=== PATIENT | male | born 1930 | race Caucasian/White ===

== ENCOUNTER 2016-06-24 09:11 | Inpatient (IN) | payer OTHER ==
[~2016-06-24] VITALS: Ht 162.6 cm; Wt 83.5 kg
[~2016-06-24 09:11] MED LIST: ALBUTEROL17 GM IH; AMLODIPINE BESYL5 MG PO; ASPIR 8181 M1 PO; ATORVASTATIN CA10 MG PO; CALCIUM 500 MG1 EACH PO; CARDIZEM120 MG PO; COLACE100 MG PO; COUMADIN,JANTOVE5 MG PO; COUMADIN5 MG PO; CYANOCOBAL1000 MCG/2 IM; DILTIAZEM PO; LANOXIN,DIGIT0.25 MG PO; LIPITOR10 MG PO; LO-DOSE ASPIRIN81 M1 PO; LOVENOX60 MG/0.6 SC; LOVENOX80 MG/0.8 SC; NORVASC5 MG PO; PROAIR HFA8.5 GM IH; PROVENTIL HFA6.7 GM IH; PROVENTIL,2.5 MG/3 M IH; RANITIDINE HCL150 MG PO; RECLAST5 MG/100 M IV; ULTRAM50 MG PO; VALIUM5 MG PO; WARFARIN SODIU7.5 MG PO; WARFARIN SODIUM5 MG PO
[2016-06-24 09:48] LABS: HEMATOCRIT 46.9 % (38.0-50.0); MCH 30.6 PG (29.0-34.0); MCHC 33.5 G/DL (30.0-36.0); MCV 91.4 FL (86-99); MEAN PLAT.VOLUME 9.1 uM^3 (9.0-12.4); PLATELET COUNT 182 K/uL (156-360); RBC DIS.WIDTH-CV 13.2 % (11.8-14.6); RBC DIS.WIDTH-SD 45.2 % (39-53); RED BLOOD COUNT 5.13 M/uL (4.00-5.50); WHITE BLOOD COUNT 10.6 K/uL (4.1-10.2)
[2016-06-24 09:59] LABS: INTER. NORMALIZED RATIO 2.8; PROTHROMBIN TIME 29.2 (9.2-11.2); PTT 37.5 (25-32)
[2016-06-24 11:07] LABS: CHLORIDE 104 mEq/L (99-109); POTASSIUM 3.9 mEq/L (3.7-5.4); SODIUM 139 mEq/L (136-147)
[2016-06-24 11:09] LABS: GLUCOSE 131 mg/dL (70-99)
[2016-06-24 11:10] LABS: ANION GAP 13 MEQ/L (2-14)
[2016-06-24 11:12] LABS: ALKALINE PHOSPHATASE 100 IU/L (3-129)
[2016-06-24 11:13] LABS: GFR ESTIMATE (CALCULATED) > 59 mL/min/
[2016-06-24 11:14] LABS: UREA NITROGEN (BUN) 17 mg/dL (9-23)
[2016-06-24 11:28] LABS: ADD MIUA? YES; BILIRUBIN NEGATIVE; BLOOD LARGE; COLOR STRAW ((YELLOW)); GLUCOSE (STRIP) NEGATIVE; KETONES 20; LEUKOCYTES NEGATIVE; NITRITE NEGATIVE; PROTEIN (STRIP) NEGATIVE; SPECIFIC GRAVITY 1.013 (1.000-1.030); UROBILINOGEN 0.2 MG/DL (0.2-1.0)
[2016-06-24 12:08] LABS: BACTERIA NONE SEEN /HPF; EPITHELIAL CELLS NONE SEEN /HPF; MUCUS TRACE /LPF; RED BLOOD CELLS TNTC /HPF (0-5); UCUL ADDED? NO; WHITE BLOOD CELLS 0-5 /HPF (0-5)
[2016-06-24] MEDS ORDERED: CARDIZEM CD120 M1 PO (13:49)
[2016-06-24 14:40] LABS: PSA FREE 0.39 ng/mL
[2016-06-24 15:01] VITALS: BP 143/74
[2016-06-24 17:02] VITALS: BP 156/83
[2016-06-24 20:00] VITALS: BP 122/77
[2016-06-25] VITALS: BP 114/70
[2016-06-25 04:00] VITALS: BP 111/53
[2016-06-25 06:37] LABS: INTER. NORMALIZED RATIO 3.4; PROTHROMBIN TIME 35.8 (9.2-11.2)
[2016-06-25 06:52] LABS: ANION GAP 5 MEQ/L (2-14); CHLORIDE 105 MEQ/L (99-109); GFR ESTIMATE (CALCULATED) > 59 mL/min/; SAMPLE HEMOLYSIS CHECK 0; SAMPLE ICTERIC CHECK 0; SAMPLE LIPEMIA CHECK 0; SODIUM 139 MEQ/L (136-147); UREA NITROGEN (BUN) 11 mg/dL (9-23)
[2016-06-25 06:53] LABS: GLUCOSE 94 mg/dL (70-99); POTASSIUM 4.7 MEQ/L (3.7-5.4)
[2016-06-25 07:01] LABS: HEMATOCRIT 44.6 % (38.0-50.0); MCH 30.2 PG (29.0-34.0); MCHC 32.5 G/DL (30.0-36.0); MCV 92.9 FL (86-99); MEAN PLAT.VOLUME 9.6 uM^3 (9.0-12.4); PLATELET COUNT 177 K/uL (156-360); RBC DIS.WIDTH-CV 13.5 % (11.8-14.6); RBC DIS.WIDTH-SD 46.6 % (39-53)
[2016-06-25 07:05] LABS: WHITE BLOOD COUNT 7.4 K/uL (4.1-10.2)
[2016-06-25 07:31] VITALS: BP 127/81
[2016-06-25 10:54] VITALS: BP 126/82
[2016-06-25 16:08] VITALS: BP 96/60
[2016-06-25 21:00] VITALS: BP 108/68
[2016-06-26 00:15] VITALS: BP 120/67
[2016-06-26 01:15] VITALS: BP 127/77
[2016-06-26 04:00] VITALS: BP 133/77
[2016-06-26 07:12] LABS: INTER. NORMALIZED RATIO 2.1; PROTHROMBIN TIME 22.4 (9.2-11.2)
[2016-06-26 07:22] VITALS: BP 158/85
[2016-06-26 10:39] VITALS: BP 153/86
[2016-06-26] MEDS ORDERED: TAMSULOSIN HCL0.4 MG PO (10:56)
[2016-06-26] MEDS ORDERED: POLYETHYLENE GL17 GM PO (10:59)
== END 2016-06-26 13:12 | disposition home or self-care (01) | DRG 694 ==
LOC: EME 09:11 → EDOF 13:03 → 5WEST 13:03 → EDOF 13:03 → 5WEST 14:55
PROVIDERS: Emergency Medicine; Internal Medicine
DX: N13.2 Hydronephrosis with renal and ureteral calculous obstruction (principal); I25.10 Atherosclerotic heart disease of native coronary artery without angina pectoris; I48.2 Chronic atrial fibrillation; M80.88XD Other osteoporosis with current pathological fracture, vertebra(e), subsequent encounter for fracture with routine healing; I10 Essential (primary) hypertension; K80.20 Calculus of gallbladder without cholecystitis without obstruction; R31.0 Gross hematuria; T45.515A Adverse effect of anticoagulants, initial encounter; R79.1 Abnormal coagulation profile; R31.29 Other microscopic hematuria; Z79.01 Long term (current) use of anticoagulants; Z90.79 Acquired absence of other genital organ(s); Z88.0 Allergy status to penicillin; Z98.61 Coronary angioplasty status; Z95.820 Peripheral vascular angioplasty status with implants and grafts
CPT/HCPCS: 74177; 80048; 80053; 81003; 83605; 84154 GA; 85027; 85610; 85730; 99281; 99285; G0103; J1170; J1885; J1956; J2405; J3010; J7030; S0028

== ENCOUNTER 2016-11-06 09:16 | Emergency (ER) | payer OTHER ==
[~2016-11-06] VITALS: Ht 160 cm; Wt 81.2 kg
[~2016-11-06 09:16] MED LIST changes: +CARDIZEM CD120 M1 PO; +POLYETHYLENE GL17 GM PO; +TAMSULOSIN HCL0.4 MG PO
[2016-11-06 10:48] LABS: BASOPHIL COUNT 0.1 K/uL (0-0.1); EOSINOPHIL (%) 9.8 % (0-5); EOSINOPHIL COUNT 0.7 K/uL (0-0.3); HEMATOCRIT 45.3 % (38.0-50.0); IMMATURE GRANULOCYTE (%) 0.3 % (0.0-0.7); INSTRUMENT ABS NEUTROPHIL CT 4.5 K/uL; LYMPHOCYTE COUNT 0.8 K/uL (1.0-2.8); MCH 30.8 PG (29.0-34.0); MCHC 33.3 G/DL (30.0-36.0); MCV 92.4 FL (86-99); MEAN PLAT.VOLUME 8.8 uM^3 (9.0-12.4); MONOCYTE (%) 13.4 % (3-12); MONOCYTE COUNT 0.9 K/uL (0-0.8); NEUTROPHIL (%) 64.4 % (45-76); NEUTROPHIL COUNT 4.5 K/uL (1.8-6.4); PLATELET COUNT 167 K/uL (156-360); RBC DIS.WIDTH-CV 13.9 % (11.8-14.6); RBC DIS.WIDTH-SD 47.4 % (39-53)
[2016-11-06 10:55] LABS: INTER. NORMALIZED RATIO 3.6; PROTHROMBIN TIME 42.2 SEC (10.2-12.9)
[2016-11-06 13:41] VITALS: BP 142/66
== END 2016-11-06 13:42 | disposition home or self-care (01) ==
LOC: EME 09:16
PROVIDERS: Emergency Medicine
DX: S80.11XA Contusion of right lower leg, initial encounter (principal); R79.1 Abnormal coagulation profile; Z86.718 Personal history of other venous thrombosis and embolism; Z79.01 Long term (current) use of anticoagulants; I10 Essential (primary) hypertension; J45.909 Unspecified asthma, uncomplicated; Z85.828 Personal history of other malignant neoplasm of skin; Z79.82 Long term (current) use of aspirin
CPT/HCPCS: 73590; 85025; 85610; 93971; 99281; 99284

== ENCOUNTER 2017-07-07 07:40 | Emergency (ER) | payer OTHER ==
[~2017-07-07] VITALS: Ht 162.6 cm; Wt 83.1 kg
[2017-07-07 08:40] LABS: BASOPHIL (%) 1.3 % (0-1); BASOPHIL COUNT 0.1 K/uL (0-0.1); EOSINOPHIL (%) 10.7 % (0-5); EOSINOPHIL COUNT 0.6 K/uL (0-0.3); HEMATOCRIT 48.9 % (38.0-50.0); HEMOGLOBIN 16.5 G/DL (12.5-16.6); IMMATURE GRANULOCYTE (%) 0.2 % (0.0-0.7); LYMPHOCYTE (%) 13.1 % (15-42); LYMPHOCYTE COUNT 0.7 K/uL (1.0-2.8); MCHC 33.7 G/DL (30.0-36.0); MCV 91.7 FL (86-99); MONOCYTE (%) 11.6 % (3-12); MONOCYTE COUNT 0.6 K/uL (0-0.8); NEUTROPHIL (%) 63.1 % (45-76); NEUTROPHIL COUNT 3.5 K/uL (1.8-6.4); PLATELET COUNT 168 K/uL (156-360); RBC DIS.WIDTH-SD 46.9 % (39-53); RED BLOOD COUNT 5.33 M/uL (4.00-5.50); WHITE BLOOD COUNT 5.5 K/uL (4.1-10.2)
[2017-07-07 08:49] LABS: ALBUMIN 3.8 g/dL (3.2-4.8); INTER. NORMALIZED RATIO 2.4
[2017-07-07 08:50] LABS: CHLORIDE 105 mEq/L (99-109); POTASSIUM 4.8 mEq/L (3.7-5.4); SODIUM 141 mEq/L (136-147)
[2017-07-07 08:52] LABS: GLUCOSE 98 mg/dL (70-99); TOTAL PROTEIN 6.6 g/dL (6.4-8.3)
[2017-07-07 08:54] LABS: TOTAL BILIRUBIN 1.1 mg/dL (0.0-1.0)
[2017-07-07 08:55] LABS: ALKALINE PHOSPHATASE 103 IU/L (3-129)
[2017-07-07 08:57] LABS: AST (GOT) 22 IU/L (2-34); UREA NITROGEN (BUN) 19 mg/dL (9-23)
[2017-07-07 08:58] LABS: ALT (GPT) 12 IU/L (3-49)
[2017-07-07 09:07] LABS: CREATININE 0.9 mg/dL (0.6-1.3); GFR ESTIMATE (CALCULATED) > 59 mL/min/ (58.99-99999)
[2017-07-07 12:44] VITALS: BP 127/87
== END 2017-07-07 12:53 | disposition home or self-care (01) ==
LOC: EME 07:40
PROVIDERS: Physician Assistant Medical
DX: I73.9 Peripheral vascular disease, unspecified (principal); R20.2 Paresthesia of skin; I10 Essential (primary) hypertension; J45.909 Unspecified asthma, uncomplicated; Z79.01 Long term (current) use of anticoagulants; Z79.82 Long term (current) use of aspirin; Z86.718 Personal history of other venous thrombosis and embolism; Z85.828 Personal history of other malignant neoplasm of skin; Z95.5 Presence of coronary angioplasty implant and graft; Z88.0 Allergy status to penicillin; Z88.8 Allergy status to other drugs, medicaments and biological substances
CPT/HCPCS: 80053; 85025; 85610; 93931; 99281; 99284